=== PATIENT | female | born 1980 | race Caucasian/White ===

== ENCOUNTER 2017-07-26 12:27 | Emergency (ER) | payer OTHER ==
[~2017-07-26] VITALS: Wt 80.1 kg
[2017-07-26] MEDS ORDERED: MINE3.5O30 LEFT EYE (14:45)
[2017-07-26] MEDS ORDERED: UDROBDM PO (14:45)
--- NOTE | 2017-07-26 14:48 | ERD ---
ER Documentation Chief Complaint Chief Complaint LEFT ARM REDNESS/PAIN, ONSET 2 DAYS, NO INJURY HPI 36 year female complains of left eye redness. She has had a dry cough for last week. She denies any visual changes no visual deficits, pain. She denies any discharge or contact lens use. ROS All systems reviewed and are negative except as per history of present illness. Medications Home Meds Active Scripts Guaifenesin-Dextromethorphan* (Robitussin* DM) 100MG/10MG/5ML Syrup, 5 ML PO Q4H Y for COUGH for 5 Days, ML Prov:RAJI GOODMAN MD 07/26/17 Mineral Oil/Petrolatum,White (ARTIFICIAL TEARS EYE OINT) 3.5 Gm Oint...g., 1 APPLIC LEFT EYE NEEDED Y for DRY EYES for 10 Days, #1 EA Prov:RAJI GOODMAN MD 07/26/17 Physical Exam Vitals Vital Signs Date Time Temp Pulse Resp B/P Pulse Ox O2 Delivery O2 Flow Rate FiO2 07/26/17 12:29 98.0 98 17 130/95 98 Physical Exam Const: [], Pfp-iet-youmdqngt per Head: Atraumatic Eyes: Normal Conjunctiva and eyes PERRLA and extraocular movements intact. There is some conjunctival hemorrhage extending from 3:00 to 6:00 on the left eye. ENT: Normal External Ears, Nose and Mouth. Neck: Full range of motion..~ No meningismus. Resp: Clear to auscultation bilaterally Cardio: Regular rate and rhythm, no murmurs Abd: Soft, non tender, non distended. Normal bowel sounds Skin: No petechiae or rashes Back: No midline or flank tenderness Ext: No cyanosis, or edema Neur: Awake and alert Psych: Normal Mood and Affect Procedures/MDM Patient presents with URI symptoms and a left eye subconjunctival hemorrhage, likely from There is no evidence of visual field deficits or signs or symptoms to suggest acute glaucoma, optic neuritis, orbital cellulitis, additional emergent ophthalmology emergencies. She will discharged home with Robitussin artificial tears, primary care and ophthalmology follow-up and return precautions. The patient was stable with no new complaints during the ER course. Clinically, there is no current evidence to suggest meningitis, sepsis, acute abdomen, pneumonia, acute coronary syndrome, pulmonary embolism, or any other emergent condition appearing to require further evaluation or hospitalization. The patient should certainly return for any new or worsening symptoms per the aftercare instructions. They should otherwise follow-up with her primary care doctor for reevaluation this week. Departure Diagnosis: Primary Impression: URI, acute Additional Impression: Subconjunctival hemorrhage Laterality: left Qualified Code: H11.32 - Subconjunctival hemorrhage of left eye Condition: Stable Patient Instructions: Subconjunctival Hemorrhage, Uri, Viral, No Abx (Adult) Referrals: [facility] Hours: Mon - Sat 9:00 AM - 5:00 PM Additional Instructions: Cheque otro vez con ambrocio doctor primario en el proximo cruz or regresa para mas o nueva simptomas. Va al ambrocio doctor/ specialista para mas evaluacon en el proximo semana. posiblemente necesita autorizado de ambrocio doctor primario para specialista. Regresa para fiebre, o mas o nueva simptomas. RAJI GOODMAN MD Jul 26, 2017 14:48
== END 2017-07-26 15:19 | disposition home or self-care (01) ==
LOC: FTE 12:27
DX: J06.9 Acute upper respiratory infection, unspecified (principal); H11.32 Conjunctival hemorrhage, left eye
CPT/HCPCS: 99283